=== PATIENT | female | born 1980 | race African-American/Black ===

== ENCOUNTER 2017-03-20 22:40 | Emergency (ER) | payer MEDICAID, OTHER ==
[~2017-03-20] VITALS: Ht 157.5 cm; Wt 113.4 kg
[~2017-03-20 22:40] MED LIST: ASCO250T6 PO; CHOL20004 PO; FERR-58 PO
[2017-03-21] MEDS ORDERED: LIDOCAINE HCL 2% 20 ML VIAL TP ONE (00:15)
[2017-03-21] MEDS ORDERED: LIDOCAINE HCL 2% 20 ML VIAL ONE (00:17)
--- NOTE | 2017-03-21 00:40 | NUR ---
Patient discharged to home in stable conditon. Written and verbal after care instructions given. Patient verbalizes understanding of instructions.
[2017-03-22] MEDS ORDERED: MUPI22OI2 TOP (23:18)
== END 2017-03-21 00:41 | disposition home or self-care (01) ==
LOC: ER 22:41
DX: L02.411 Cutaneous abscess of right axilla (principal); Z86.73 Personal history of transient ischemic attack (TIA), and cerebral infarction without residual deficits; G43.909 Migraine, unspecified, not intractable, without status migrainosus; Z88.0 Allergy status to penicillin; Z88.1 Allergy status to other antibiotic agents; Z88.2 Allergy status to sulfonamides
CPT/HCPCS: 10060; 99283; A4663; J3490

== ENCOUNTER 2017-03-22 22:47 | Emergency (ER) | payer OTHER ==
[~2017-03-22] VITALS: Ht 157.5 cm; Wt 113.4 kg
[2017-03-22] MEDS ORDERED: MUPI22OI2 TOP (23:18)
--- NOTE | 2017-03-22 23:36 | NUR ---
DR. GARCIA AT BEDSIDE FOR MSE.
--- NOTE | 2017-03-23 00:05 | NUR ---
Patient discharged to home in stable conditon. Written and verbal after care instructions given. Patient verbalizes understanding of instructions. PATIENT LEFT WITH STABLE GAIT.
[2017-03-23 00:06] VITALS: BP 143/85
== END 2017-03-23 00:06 | disposition home or self-care (01) ==
LOC: ER 22:48
DX: Z48.817 Encounter for surgical aftercare following surgery on the skin and subcutaneous tissue (principal); L02.411 Cutaneous abscess of right axilla; Z88.0 Allergy status to penicillin; Z88.2 Allergy status to sulfonamides; Z86.73 Personal history of transient ischemic attack (TIA), and cerebral infarction without residual deficits; G43.909 Migraine, unspecified, not intractable, without status migrainosus
CPT/HCPCS: 99283; A4663

== ENCOUNTER 2017-04-06 21:52 | Emergency (ER) | payer OTHER ==
[~2017-04-06] VITALS: Ht 157.5 cm; Wt 112.5 kg
[~2017-04-06 21:52] MED LIST changes: +MUPI22OI2 TOP
--- NOTE | 2017-04-07 00:12 | NUR ---
Patient discharged to home in stable conditon. Written and verbal after care instructions given. Patient verbalizes understanding of instructions.
== END 2017-04-07 00:13 | disposition home or self-care (01) ==
LOC: ER 21:54
DX: L02.411 Cutaneous abscess of right axilla (principal); L02.214 Cutaneous abscess of groin; G43.909 Migraine, unspecified, not intractable, without status migrainosus; Z88.0 Allergy status to penicillin; Z88.2 Allergy status to sulfonamides; Z86.73 Personal history of transient ischemic attack (TIA), and cerebral infarction without residual deficits
CPT/HCPCS: 87070; 87186; 99284; A4663